=== PATIENT | male | born 1995 | race Caucasian/White ===

== ENCOUNTER 2021-06-09 04:24 | Emergency (ER) | payer BC ==
[~2021-06-09] VITALS: Ht 177.8 cm; Wt 79.8 kg
[2021-06-09 04:39] VITALS: BP 151/91
--- NOTE | 2021-06-09 04:44 | NUR ---
patient to bed 7
[2021-06-09] MEDS ORDERED: PRED20TA5 PO (04:53)
[2021-06-09] MEDS ORDERED: IBUP-2213 PO (04:53)
--- NOTE | 2021-06-09 05:08 | NUR ---
PATIENT PRESENTS TO ED WITH A COUGHT X 3 WEEKS. . PT STATES HE IS SOB AND IT WORSE AT NIGHT. PT TOOK OTC COUGH SYRUP AND PRESCRIPTION STRENGTH FORM URGENT CARE . DENIES N/V/D; SKIN IS PINK/WARM/DRY; AAOX4 WITH EVEN AND STEADY GAIT; LUNGS CLEAR BL; HR EVEN AND REGULAR; PT DENIES ANY FEVER.VSS; PMH: ASTHMA NKA ALLERGIES : NONE
[2021-06-09 05:22] VITALS: BP 151/91
--- NOTE | 2021-06-09 05:22 | NUR ---
Patient discharged with v/s stable. Written and verbal after care instructions given and explained. Patient alert, oriented and verbalized understanding of instructions. Ambulatory with steady gait. All questions addressed prior to discharge. ID band removed. Patient advised to follow up with PMD. Rx of IBUPROFEN AMD PREDNISONE given. Opportunity to ask questions provided and answered.
== END 2021-06-09 05:22 | disposition home or self-care (01) ==
LOC: MED 04:24
DX: R05.9 Cough, unspecified (principal); R07.9 Chest pain, unspecified
CPT/HCPCS: 99283